=== PATIENT | female | born 1985 | race Caucasian/White ===

== ENCOUNTER 2018-09-21 22:39 | Emergency (ER) | payer OTHER ==
[2018-09-21 22:51] VITALS: BP 121/79; PULSE 96; TEMP 98; BMI 29.6
[2018-09-21] MEDS ORDERED: AMOX TR/POT CLAV 875MG/125MG TABLETS (FP) PO ONE (23:35)
[2018-09-21] MEDS ORDERED: TETANUS AND DIPHTHERIA TOXOID 0.5 ML DISP.SYRIN IM ONE (23:35)
--- NOTE | 2018-09-21 23:35 | PDOC ---
History of Present Illness - General Chief Complaint: Bite Stated Complaint: LACERATION Time Seen by Provider: 09/21/18 23:04 History Source: Patient - History of Present Illness Initial Comments: 09/22/18 00:14 32-year-old female complaining of bite to the right side of upper lip by a dog and streaking that she was petting prior to arrival. 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 Last tetanus of the patient unknown. No past medical history Past History - Past Medical History Allergies/Adverse Reactions: Allergies Allergy/AdvReac Type Severity Reaction Status Date / Time No Known Allergies Allergy Verified 09/21/18 22:48 Home Medications: Ambulatory Orders Amoxicillin/Potassium Clav [Augmentin 875-125 Tablet] 1 each PO BID #20 tablet 09/22/18 COPD: No - Suicide/Smoking/Psychosocial Hx Smoking History: Never smoked Review of Systems - Review of Systems Able to Perform ROS?: Yes Is the patient limited Setswana proficient: No *Physical Exam - Vital Signs Last Vital Signs Temp Pulse Resp BP Pulse Ox 98 F 96 H 18 121/79 100 09/21/18 22:48 09/21/18 22:48 09/21/18 22:48 09/21/18 22:48 09/21/18 22:48 - Physical Exam General Appearance: Yes: Appropriately Dressed HEENT: positive: Other (2 cm curved laceration to right side of upper lip does not cross the vermilion border. as superficial bite to upper lip crossing the vermilion border that is appears to abrasions. dentition intact. ) Moderate Sedation - Procedure Monitoring Vital Signs: Procedure Monitoring Vital Signs Temperature 98 F 09/21/18 22:48 Pulse Rate 96 H 09/21/18 22:48 Respiratory Rate 18 09/21/18 22:48 Blood Pressure 121/79 09/21/18 22:48 O2 Sat by Pulse Oximetry (%) 100 09/21/18 22:48 *DC/Admit/Observation/Transfer Diagnosis at time of Disposition: Dog bite Qualifiers: Encounter type: initial encounter Qualified Code(s): W54.0XXA - Bitten by dog, initial encounter - Discharge Dispostion Disposition: HOME - Prescriptions Prescriptions: Amoxicillin/Potassium Clav [Augmentin 875-125 Tablet] 1 each PO BID #20 tablet - Referrals Referrals: Pantaleo,Willie, MD [Primary Care Provider] - 2 Days (for a wound check) - Patient Instructions Printed Discharge Instructions: DI for Animal Bites Additional Instructions: please follow up with your doctor in 2 days for a wound check do not get wound wet for 24-48 hours keep the wound clean and dry take Augmentin as prescribed you need to return in 5 days for a wound check Additional Instructions: * Please call your personal physician to report your Emergency Department visit and to report your progress, if any. * If there is no improvement in symptoms in 2 days call your physician. * Return to the Emergency Department for any worsening symptoms. - Post Discharge Activity Forms/Work/School Notes: Back to Work
[2018-09-21] MEDS ORDERED: AMOX TR/POT CLAV 875MG/125MG TABLETS (FP) ONE (23:44)
[2018-09-21] MEDS ORDERED: DIPHTH,PERTUSS(ACELL),TET 0.5 ML DISP.SYRIN IM ONE (23:45)
== END 2018-09-22 00:56 | disposition home or self-care (01) ==
LOC: JER 22:39
PROC: 3E0234Z Introduction of Serum, Toxoid and Vaccine into Muscle, Percutaneous Approach (ICD-10-PCS; principal; 2018-09-21)
DX: S00.571A Other superficial bite of lip, initial encounter (principal); W54.0XXA Bitten by dog, initial encounter; Y93.89 Activity, other specified; Y92.89 Other specified places as the place of occurrence of the external cause; Y99.8 Other external cause status
CPT/HCPCS: 99282-25

== ENCOUNTER 2022-08-10 21:41 | Emergency (ER) | payer BC, OTHER ==
[2022-08-10 21:45] VITALS: BP 146/90; PULSE 85; RESP 17; TEMP 98.1; BMI 31.0
[2022-08-10] MEDS ORDERED: AMOX TR/POT CLAV 875MG/125MG TABLETS (FP) PO ONE (22:58)
[2022-08-10] MEDS ORDERED: ACETAMINOPHEN 500 MG TABLET (FP) PO ONE (22:58)
[2022-08-10] MEDS ORDERED: ACETAMINOPHEN 500 MG TABLET (FP) ONE (23:00)
[2022-08-10] MEDS ORDERED: AMOX TR/POT CLAV 875MG/125MG TABLETS (FP) ONE (23:00)
== END 2022-08-10 23:57 | disposition home or self-care (01) ==
LOC: JERFT 21:41 → JER 21:41 → JERFT 23:57
PROC: 0HQFXZZ Repair Right Hand Skin, External Approach (ICD-10-PCS; principal; 2022-08-10)
DX: S61.401A Unspecified open wound of right hand, initial encounter (principal); W54.0XXA Bitten by dog, initial encounter
CPT/HCPCS: 73130-TC-RT-FY; 99283-25